=== PATIENT | male | born 1980 ===

== ENCOUNTER → 2019-01-18 09:43 | Outpatient (CLI) | payer OTHER | END | disposition home or self-care (01) | LOC: LAB 09:43 | DX: E03.8 Other specified hypothyroidism (principal); E06.3 Autoimmune thyroiditis; D50.8 Other iron deficiency anemias; D51.0 Vitamin B12 deficiency anemia due to intrinsic factor deficiency; D51.1 Vitamin B12 deficiency anemia due to selective vitamin B12 malabsorption with proteinuria; D55.0 Anemia due to glucose-6-phosphate dehydrogenase [G6PD] deficiency; I10 Essential (primary) hypertension; D51.8 Other vitamin B12 deficiency anemias; D75.1 Secondary polycythemia; Z80.49 Family history of malignant neoplasm of other genital organs; Z80.3 Family history of malignant neoplasm of breast ==